=== PATIENT | male | born 1960 | race African-American/Black ===

== ENCOUNTER 2016-04-14 20:06 | Emergency (ER) | payer BC, MEDICAID ==
[2016-04-14] MEDS ORDERED: IBUPROFEN 800 MG TABLET PO ONE (23:41)
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
[2016-04-15 04:13] VITALS: BP 121/58
== END 2016-04-15 01:45 | disposition home or self-care (01) ==
LOC: ER 20:06
DX: S80.01XA Contusion of right knee, initial encounter (principal); M25.561 Pain in right knee; W19.XXXA Unspecified fall, initial encounter; Y92.009 Unspecified place in unspecified non-institutional (private) residence as the place of occurrence of the external cause; M54.9 Dorsalgia, unspecified; F17.200 Nicotine dependence, unspecified, uncomplicated
CPT/HCPCS: 99283; 73564; J3490

== ENCOUNTER 2016-04-16 06:45 | Emergency (ER) | payer MEDICAID ==
[2016-04-16 09:32] LABS: ABSOLUTE EOSINOPHILS # (AUTO) 0.1 10^3/uL (0.0-0.6); ABSOLUTE MONOCYTES (AUTO) 0.3 10^3/uL (0.1-1.4); ABSOLUTE NEUT (AUTO) 2.1 10^3/uL (1.7-8.2); BASOPHILS % (AUTO) 0.8 % (0-2); EOSINOPHILS % (AUTO) 1.6 % (0-6); HEMATOCRIT 40.1 % (37.9-51.0); HEMOGLOBIN 13.3 g/dL (13.5-17.0); HGB HCT DIFFERENCE -0.2; LYMPHOCYTES % (AUTO) 29.5 % (13-45); MEAN CORPUSCULAR HEMOGLOBIN 29.5 pg (27.0-33.4); MEAN CORPUSCULAR HGB CONC 33.3 g/dL (32.0-36.0); MEAN CORPUSCULAR VOLUME 89 fl (80-97); MONOCYTES % (AUTO) 7.3 % (3-13); RED BLOOD COUNT 4.53 10^6/uL (4.35-5.55); RED CELL DISTRIBUTION WIDTH 14.2 % (11.5-14.0); SEGMENTED NEUTROPHILS % (AUTO) 60.8 % (42-78); WHITE BLOOD COUNT 3.5 10^3/uL (4.0-10.5)
[2016-04-16 09:42] LABS: ALANINE AMINOTRANSFERASE 39 U/L (21-72); ALBUMIN 3.9 g/dL (3.5-5.0); ALKALINE PHOSPHATASE 74 U/L (38-126); ANION GAP 11 (5-19); ASPARTATE AMINO TRANSFERASE 31 U/L (17-59); BILIRUBIN,TOTAL 0.9 mg/dL (0.2-1.3); BLOOD UREA NITROGEN 12 mg/dL (7-20); CALCIUM 9.6 mg/dL (8.4-10.2); CARBON DIOXIDE 25 mmol/L (22-30); CHLORIDE 104 mmol/L (98-107); CREATININE RESULT 0.77 mg/dL (0.52-1.25); GLUCOSE 94 mg/dL (75-110); POTASSIUM 4.6 mmol/L (3.6-5.0); SODIUM 139.7 mmol/L (137-145); TOTAL PROTEIN 6.7 g/dL (6.3-8.2)
[2016-04-16 09:45] LABS: ALCOHOL < 10 mg/dL (NONE DETECTED)
--- NOTE | 2016-04-16 10:48 | EKG REPORT ---
SEVERITY:- BORDERLINE ECG - SINUS RHYTHM ATRIAL PREMATURE COMPLEX BORDERLINE ST ELEVATION, ANTEROLATERAL LEADS : Confirmed by: Branden Mejias 16-Apr-2016 10:47:53
--- NOTE | 2016-04-16 12:22 | PSYCHOLOGICAL NOTE ---
Psych Note - Psych Note Psych Note: Pt. reports SI with plan to cut wrists, pt. reports HX of depression and schizophrenia has been off of prozac and abilify since October. Pt. reports having SI thoughts for 2 weeks. Patient states that he has been off is medication since October and that he took Abilify and Prozac. Patient states that he has suicidal ideation but does not have a plan; "not yet." He disclosed that he just moved her from [facility] to be with family. when asked if he lives with family or alone, the patient states that he is homeless. When clinician attempted to discuss resources the patient stated "I don't know why you are focusing on my homelessness, what I really need it rehab." When asked what his drug of choice is he stated "everything" and confirmed the last time he used was last night. The patient states that he has had one inpatient psychiatric stay at [place] in 2001 after his mom . He stated that he hears her "all the time" in his ear whispering to him. Patient is alert and orientated to person, place, time and circumstance. mood is euthymic with congruent affect. Patient endorses suicidal ideation for many years and reports no new acute changes. Patient denies homicidal ideation; no delusions are noted. Patient endorsed auditory hallucinations since 2001 after his mother ; however, they are incongruent with known manifestations of auditory hallucinations. no delusions are noted. Thought process is organized and linear. Thought content appears to be centered around an unknown secondary gain. conversational speech is within normal rate tone and prosody. Eye contact was fair. Intellectual abilities appear to be average range. Attention and concentration are fair. Insight, judgment and impulse control are poor. 292.9 (F19.99) Unspecified Substance related disorder per history provided by patient. 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 Clinician contacted [facility] and set up meeting between patient and mobile crisis to be assessed for detox after discharge. Patient already has an appointment with [facility] on the 04/27/16 for mental health. Patient's presentation at this time is incongruent with what is typically associated with chronic hallucinations, and ability to make eye contact, track and remain on topic, remained calm, did not look around the room , etc. Patient disclosed passive suicidal ideation with no plan; he does not meet criteria for IVC per [place] GS 122 C. Patient is psychiatrically clear for discharge. Dr. Bagley was consulted on the care and management of this patient ; attending physician is in agreement with recommendations and disposition.
[2016-04-16 12:57] LABS: APPEARANCE,URINE CLEAR; BILIRUBIN,URINE NEGATIVE (NEGATIVE); GLUCOSE, URINE NEGATIVE (NEGATIVE); KETONES,URINE NEGATIVE (NEGATIVE); LEUKOCYTE ESTERASE,URINE NEGATIVE (NEGATIVE); NITRITE,URINE NEGATIVE (NEGATIVE); PROTEIN,URINE NEGATIVE (NEGATIVE); URINE SPECIFIC GRAVITY 1.014; UROBILINOGEN,URINE NEGATIVE mg/dL (<2.0)
[2016-04-16 13:12] LABS: URINE BARBITURATES SCREEN NEGATIVE; URINE METHADONE SCREEN NEGATIVE; URINE OPIATES LOW NEGATIVE; URINE PHENCYCLIDINE SCREEN NEGATIVE
--- NOTE | 2016-04-16 13:17 | ER Document Report ---
ED General - General Chief Complaint: Suicidal Ideation Stated Complaint: SUICIDAL IDEATION TRAVEL OUTSIDE OF THE U.S. IN LAST 30 DAYS: No - HPI Patient complains to provider of: suicidal ideation Notes: Patient coming in for evaluation suicidal ideation. Patient states ongoing for the last week or 2 weeks. Kelsy schofield has a history of evaluations. Past and he was traveling down from [place] to [place] on the visit with family. Patient states currently he is residing [place]. Patient denies any changes in his current lifestyle or social situation. Patient states he does drink smoke and due to cocaine and marijuana. Patient states he did cocaine and marijuana night prior to arrival here. Patient was given of breath is no tray was able to tolerate this patient was resting comfortably upon my evaluation. Patient denies a plan. - Related Data Allergies/Adverse Reactions: No Known Allergies Allergy (Unverified 11/08/15 09:03) Past Medical History - Social History Smoking Status: Current Every Day Smoker Chew tobacco use (# tins/day): No Frequency of alcohol use: Heavy Drug Abuse: Cocaine, Marijuana Family History: Reviewed & Not Pertinent Patient has suicidal ideation: Yes Patient has homicidal ideation: No Renal/ Medical History: Denies: Hx Peritoneal Dialysis Psychiatric Medical History: Reports: Hx Depression, Hx Schizophrenia Past Surgical History: Reports: Hx Tonsillectomy - Right 2013 - Immunizations Hx Diphtheria, Pertussis, Tetanus Vaccination: No - Unknown Review of Systems - Review of Systems Constitutional: No symptoms reported EENT: No symptoms reported Cardiovascular: No symptoms reported Respiratory: No symptoms reported Gastrointestinal: No symptoms reported Genitourinary: No symptoms reported Male Genitourinary: No symptoms reported Musculoskeletal: No symptoms reported Skin: No symptoms reported Hematologic/Lymphatic: No symptoms reported Neurological/Psychological: Suicidal ideation -: Yes All other systems reviewed and negative Physical Exam - Vital signs Vitals: Temp Pulse Resp BP Pulse Ox 97.6 F 64 18 146/90 H 99 04/16/16 06:54 04/16/16 06:54 04/16/16 06:54 04/16/16 06:54 04/16/16 06:54 Interpretation: Normal - General General appearance: Appears well, Alert - HEENT Head: Normocephalic, Atraumatic Eyes: Normal Pupils: PERRL - Respiratory Respiratory status: No respiratory distress Chest status: Nontender Breath sounds: Normal Chest palpation: Normal - Cardiovascular Rhythm: Regular Heart sounds: Normal auscultation Murmur: No - Abdominal Inspection: Normal Distension: No distension Bowel sounds: Normal Tenderness: Nontender Organomegaly: No organomegaly - Back Back: Normal, Nontender - Extremities General upper extremity: Normal inspection, Nontender, Normal color, Normal ROM , Normal temperature General lower extremity: Normal inspection, Nontender, Normal color, Normal ROM , Normal temperature, Normal weight bearing. No: Christy's sign - Neurological Neuro grossly intact: Yes Cognition: Normal Orientation: AAOx4 Monica Coma Scale Eye Opening: Spontaneous [place] Coma Scale Verbal: Oriented Monica Coma Scale Motor: Obeys Commands [place] Coma Scale Total: 15 Speech: Normal Motor strength normal: LUE, RUE, LLE, RLE Sensory: Normal - Psychological Associated symptoms: Normal affect, Normal mood - Skin Skin Temperature: Warm Skin Moisture: Dry Skin Color: Normal Course - Re-evaluation Re-evalutation: 04/16/16 14:51 I agree with the assessment and plan of her medical social worker Mahsa this time patient does not need any IVC. Patient will be discharged home - Vital Signs Vital signs: Temp Pulse Resp BP Pulse Ox 98.2 F 64 16 128/75 H 97 04/16/16 13:25 04/16/16 13:25 04/16/16 13:25 04/16/16 13:25 04/16/16 13:25 - Laboratory Result Diagrams: 04/16/16 09:00 04/16/16 09:00 Laboratory results interpreted by me: 04/16/16 04/16/16 09:00 09:00 WBC 3.5 L Hgb 13.3 L RDW 14.2 H Salicylates < 1.0 L Acetaminophen < 10 L Discharge - Discharge Clinical Impression: Auditory hallucinations Condition: Good Disposition: HOME, SELF-CARE Instructions: Hallucinations ([facility]) Additional Instructions: Please follow-up with your primary care physician/[facility]. . Return to the ER symptoms worsen. Referrals: [facility] [Provider Group] - Follow up as needed
[2016-04-16 13:27] VITALS: BP 128/75
== END 2016-04-16 13:26 | disposition home or self-care (01) ==
LOC: ER 06:45
DX: R44.0 Auditory hallucinations (principal); R45.851 Suicidal ideations; F17.210 Nicotine dependence, cigarettes, uncomplicated
CPT/HCPCS: 36415; 80053; 80307; 81001; 85025; 93005; 93010; 99285

== ENCOUNTER 2016-04-16 16:01 | Emergency (ER) | payer MEDICAID ==
--- NOTE | 2016-04-16 16:46 | ER Document Report ---
ED Psych Disorder / Suicide - General Time seen by provider: 16:35 Mode of Arrival: Ambulatory Information source: Patient, [facility] Records <CONNIE LLOYD - Last Filed: 04/16/16 16:53> - General Mode of Arrival: Ambulatory Information source: Patient TRAVEL OUTSIDE OF THE U.S. IN LAST 30 DAYS: No - HPI Patient complains to provider of: Suicidal ideation Onset: Other - see above <ALEK RAYGOZA - Last Filed: 04/16/16 16:57> - General Stated Complaint: SUICIDAL IDEATION Notes: This 56-year-old male patient presents emergency room complaining of feeling suicidal. He came to emergency room this morning about 6:30 by EMS reporting suicidal ideation. His workup showed his known chronic marijuana and cocaine abuse. He was seen by psychiatry, and discharged at 1:30 PM. He was met in the lobby by the workers from our [facility]. They told him they would try to find him inpatient treatment for substance abuse disorder and would contact him when they found the place. He checked back in because apparently he is homeless at this time and wants somewhere to stay. He normally lives in [place] and has family in the area that apparently will not allow him to stay with them any longer. He first showed up here in November 2015 with similar presentation. The psych workers saw him again when he checked back in, and again have reported that he is psychiatrically cleared to be discharged. When I asked why he returned emergency room, he stated that he was having suicidal ideations. When I pointed out that he always has them, he agreed and did not argue the point. He eventually admitted he is here because he has nowhere to stay. The patient does have a cell phone. He does have family who live in this area and he is vague about whether or not they will allow him to stay there. (CONNIE LLOYD) - Related Data Allergies/Adverse Reactions: No Known Allergies Allergy (Unverified 11/08/15 09:03) Past Medical History - General Information source: Patient - Social History Smoking Status: Unknown if Ever Smoked Drug Abuse: Cocaine, Marijuana Family History: Reviewed & Not Pertinent Renal/ Medical History: Denies: Hx Peritoneal Dialysis Psychiatric Medical History: Reports: Hx Depression, Hx Schizophrenia Past Surgical History: Reports: Hx Tonsillectomy - Right 2012 - Immunizations Hx Diphtheria, Pertussis, Tetanus Vaccination: No - Unknown <ALEK RAYGOZA - Last Filed: 04/16/16 16:57> Review of Systems - Review of Systems Constitutional: No symptoms reported EENT: No symptoms reported Cardiovascular: No symptoms reported Respiratory: No symptoms reported Gastrointestinal: No symptoms reported Genitourinary: No symptoms reported Male Genitourinary: No symptoms reported Musculoskeletal: No symptoms reported Skin: No symptoms reported Hematologic/Lymphatic: No symptoms reported Neurological/Psychological: See HPI, Suicidal ideation -: Yes All other systems reviewed and negative <ALEK RAYGOZA - Last Filed: 04/16/16 16:57> Physical Exam - General General appearance: Alert In distress: None - HEENT Head: Normocephalic, Atraumatic Eyes: Normal Extraocular movements intact: Yes Pupils: PERRL - Respiratory Respiratory status: No respiratory distress - Cardiovascular Rhythm: Regular - Abdominal Inspection: Normal - Back Back: Normal - Extremities General upper extremity: Normal inspection, Normal ROM General lower extremity: Normal inspection, Normal ROM - Neurological Neuro grossly intact: Yes - Psychological Associated symptoms: Normal affect, Normal mood - Skin Skin Temperature: Warm Skin Moisture: Dry Skin Color: Normal <ALEK RAYGOZA - Last Filed: 04/16/16 16:57> Discharge <CONNIE LLOYD - Last Filed: 04/16/16 16:53> <ALEK RAYGOZA - Last Filed: 04/16/16 16:57> - Discharge Clinical Impression: Multiple substance abuse, Cocaine abuse, Homeless Schizophrenia Qualifiers: Schizophrenia type: unspecified Qualified Code(s): F20.9 - Schizophrenia, unspecified Additional Instructions: You should follow-up with [facility] for substance abuse treatment and see if they can find you a place in the homeless [facility]. You should consider returning to [place] where you have better support groups. RETURN TO THE EMERGENCY ROOM IF ANY NEW OR WORSENING SYMPTOMS. Scribe Attestation: 04/16/16 16:53 I personally performed the services described in the documentation, reviewed and edited the documentation which was dictated to the scribe in my presence, and it accurately records my words and actions. (CONNIE LLOYD) Scribe Documentation - Scribe Written by Ehibe:: Verónica Mccann, 04/16/2016 0835 acting as scribe for :: Shaquille <RAYGOZA,ALEK - Last Filed: 04/16/16 16:57>
--- NOTE | 2016-04-16 17:05 | PSYCHOLOGICAL NOTE ---
Psych Note - Psych Note Psych Note: Patient was brought back in by [facility] because they could not contract for safety. Patient disclosed that he never left the ED lobby, that he saw that [facility] provider and was told that they would look for a bed for inpatient treatment for substance abuse. Patient stated that he checked back but nothing new has changed. He continued to disclose that he has suffered from suicidal thoughts from many years. Patient still states that he would like treatment for substance abuse. Keshia of [facility] stated that that patient refused to sign a safety contract. She continued to state that when she arrived she stated he had suicidal ideation and needed placement. HE did not disclose that he wanted substance abuse treatment until directly asked. She has called around and there are currently no beds but will be contacting the patient when one becomes available. She stated that she over heard the patient speaking with his girlfriend stating "can you swing by and see if I have an mail... I know some one else is living there now." Patient is alert and orientated to person, place, time and circumstance. mood is euthymic with congruent affect. Patient endorses suicidal ideation for many years and reports no new acute changes. Patient denies homicidal ideation; no delusions are noted. Patient endorsed auditory hallucinations since 2001 after his mother (disclosed this during first evaluation that occurred this morning; please she note) however they are incongruent with known manifestations of auditory hallucinations. no delusions are noted. Thought process is organized and linear. Thought content appears to be centered around an unknown secondary gain. conversational speech is within normal rate tone and prosody. Eye contact was fair. Intellectual abilities appear to be average range. Attention and concentration are fair. Insight, judgment and impulse control are poor. 292.9 (F19.99) Unspecified Substance related disorder per history provided by patient. 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 Clinician contacted [facility] and set up meeting between patient and mobile [facility] to be assessed for substance abuse treatment after discharge. Patient was seen by [facility] in the ED lobby. Patient already has an appointment with [facility] on the 04/27/16 for mental health. Patient's presentation at this time is incongruent with what is typically associated with chronic hallucinations; ability to make eye contact, track and remain on topic, remained calm, did not look around the room, etc. Patient disclosed passive suicidal ideation with no plan unless is told he will not have a bed for the night; he does not meet criteria for IVC per [place] GS 122 C. Patient is psychiatrically clear for discharge. Dr. Bagley was consulted on the care and management of this patient; attending physician is in agreement with recommendations and disposition.
[2016-04-16 17:26] VITALS: BP 131/68
== END 2016-04-16 17:25 | disposition home or self-care (01) ==
LOC: ER 16:01
DX: F14.10 Cocaine abuse, uncomplicated (principal); F20.9 Schizophrenia, unspecified; R45.851 Suicidal ideations
CPT/HCPCS: 99283

== ENCOUNTER 2016-07-21 22:59 | Emergency (ER) | payer MEDICAID, OTHER ==
[2016-07-22 00:53] LABS: ABSOLUTE EOSINOPHILS # (AUTO) 0.1 10^3/uL (0.0-0.6); ABSOLUTE LYMPHOCYTES (AUTO) 1.7 10^3/uL (0.5-4.7); ABSOLUTE MONOCYTES (AUTO) 0.3 10^3/uL (0.1-1.4); ABSOLUTE NEUT (AUTO) 2.4 10^3/uL (1.7-8.2); BASOPHILS % (AUTO) 0.7 % (0-2); EOSINOPHILS % (AUTO) 2.2 % (0-6); HEMATOCRIT 41.1 % (37.9-51.0); HEMOGLOBIN 12.9 g/dL (13.5-17.0); HGB HCT DIFFERENCE -2.4; LYMPHOCYTES % (AUTO) 37.1 % (13-45); MEAN CORPUSCULAR HEMOGLOBIN 29.1 pg (27.0-33.4); MEAN CORPUSCULAR HGB CONC 31.5 g/dL (32.0-36.0); MEAN CORPUSCULAR VOLUME 92 fl (80-97); MONOCYTES % (AUTO) 6.4 % (3-13); RED BLOOD COUNT 4.45 10^6/uL (4.35-5.55); SEGMENTED NEUTROPHILS % (AUTO) 53.6 % (42-78); WHITE BLOOD COUNT 4.5 10^3/uL (4.0-10.5)
[2016-07-22] MEDS ORDERED: ONDANSETRON 4 MG TAB.RAPDIS PO ONE (00:56)
--- NOTE | 2016-07-22 00:56 | ER Document Report ---
ED GI/ - General Chief Complaint: Abdominal Pain Stated Complaint: ABDOMINAL PAIN Time Seen by Provider: 07/22/16 00:46 Notes: Patient is a 56-year-old male who comes emergency department for chief complaint of abdominal pain. He states he has had abdominal pain since yesterday, he also states he had 3 episodes of loose stools. He states that he has both upper and lower cramps, he feels most of it in the middle. He denies fever, vomiting, flank pain, chest pain, hematochezia. He denies any recent travel, suspicious foods, or antibiotics. He states he has had this problem in the past and was told he had "ulcers", it has resolved before. He has not had a colonoscopy. He denies any daily medications. He smokes and also drinks every other day. TRAVEL OUTSIDE OF THE [place] IN LAST 30 DAYS: No - Related Data Allergies/Adverse Reactions: No Known Allergies Allergy (Verified 07/22/16 01:13) Past Medical History - General Information source: Patient - Social History Smoking Status: Current Every Day Smoker Frequency of alcohol use: Heavy - every other day Drug Abuse: None Lives with: Family Family History: Reviewed & Not Pertinent Patient has suicidal ideation: No Patient has homicidal ideation: No Renal/ Medical History: Denies: Hx Peritoneal Dialysis Psychiatric Medical History: Reports: Hx Depression, Hx Schizophrenia Past Surgical History: Reports: Hx Tonsillectomy - Right 2013 - Immunizations Hx Diphtheria, Pertussis, Tetanus Vaccination: No - Unknown Review of Systems - Review of Systems Constitutional: No symptoms reported EENT: No symptoms reported Cardiovascular: No symptoms reported Respiratory: No symptoms reported Gastrointestinal: See HPI Genitourinary: No symptoms reported Male Genitourinary: No symptoms reported Musculoskeletal: No symptoms reported Skin: No symptoms reported Hematologic/Lymphatic: No symptoms reported Neurological/Psychological: No symptoms reported Physical Exam - Vital signs Vitals: Temp Pulse Resp BP Pulse Ox 98.5 F 76 20 116/60 98 07/21/16 23:03 07/21/16 23:03 07/21/16 23:03 07/21/16 23:03 07/21/16 23:03 Interpretation: Normal - General General appearance: Appears well, Alert In distress: None - patient calm, no distress - HEENT Head: Normocephalic, Atraumatic Eyes: Normal Pupils: PERRL - Respiratory Respiratory status: No respiratory distress Chest status: Nontender Breath sounds: Normal Chest palpation: Normal - Cardiovascular Rhythm: Regular. No: Tachycardia Heart sounds: Normal auscultation, S1 appreciated, S2 appreciated Murmur: No - Abdominal Inspection: Normal Distension: No distension Bowel sounds: Normal Tenderness: Tender - mild generalized tenderness, slightly worse in the mid to upper abdomen; generally benign; no guarding Organomegaly: No organomegaly - Back Back: Normal, Nontender - Extremities General upper extremity: Normal inspection, Nontender, Normal color, Normal ROM , Normal temperature General lower extremity: Normal inspection, Nontender, Normal color, Normal ROM , Normal temperature, Normal weight bearing. No: Christy's sign - Neurological Neuro grossly intact: Yes Cognition: Normal Orientation: AAOx4 Monica Coma Scale Eye Opening: Spontaneous Selma Coma Scale Verbal: Oriented Sel[place] Coma Scale Motor: Obeys Commands Selma Coma Scale Total: 15 Speech: Normal Motor strength normal: LUE, RUE, LLE, RLE Sensory: Normal - Psychological Associated symptoms: Normal affect, Normal mood. No: Aggressive, Agitated, Angry, Anxious, Confused - Skin Skin Temperature: Warm Skin Moisture: Dry Skin Color: Normal Course - Re-evaluation Re-evalutation: Patient has generalized abdominal tenderness with no guarding. No leukocytosis, fever, tachycardia, or remarkable vitals. He has a psychiatric history but he makes good eye contact, is very directed and clear, has no confusion or responses to internal stimuli. Chemistry unremarkable. Urine has elevated specific gravity. No complaints after zofran, resting quietly. Gave carafate and pepcid, afterwards patient tolerated PO without any difficulty. Low suspicion of acute abdomen. Patient unable to give stool sample so this was canceled (has had 3 loose episodes today). Placing on omeprazole, discussed results, discussed primary care follow-up, discussed treatment and return precautions, patient states understanding and agreement. - Vital Signs Vital signs: Temp Pulse Resp BP Pulse Ox 97.6 F 53 L 14 118/68 99 07/22/16 02:55 07/22/16 02:55 07/22/16 02:55 07/22/16 02:55 07/22/16 02:55 - Laboratory Result Diagrams: 07/22/16 00:35 07/22/16 00:35 Laboratory results interpreted by me: 06/07/22/16 07/22/16 00:35 00:35 00:35 Hgb 12.9 L MCHC 31.5 L RDW 15.0 H Chloride 109 H Alkaline Phosphatase 143 H Total Protein 5.8 L Albumin 3.1 L Urine Urobilinogen 4.0 H Ur Leukocyte Esterase TRACE H Urine Ascorbic Acid 40 H Discharge - Discharge Clinical Impression: Abdominal pain Qualifiers: Abdominal location: generalized Qualified Code(s): R10.84 - Generalized abdominal pain Condition: Stable Disposition: HOME, SELF-CARE Additional Instructions: Take the omeprazole daily, stop smoking, reduce alcohol. Take tums, pepcid, or similar medication if needed as well. Follow up with primary care, I recommend a colonoscopy as well. Return to the ED for worsening symptoms - increased pain, vomiting, black stools , fever, etc. Prescriptions: Omeprazole 40 mg PO DAILY #30 capsule. Referrals: LOUANN REINOSO, OUTPATIENT PHYSICAL THERAPIST-C [Primary Care Provider] - Follow up as needed
[2016-07-22 01:04] LABS: ALANINE AMINOTRANSFERASE 24 U/L (21-72); ALBUMIN 3.1 g/dL (3.5-5.0); ALKALINE PHOSPHATASE 143 U/L (38-126); ANION GAP 6 (5-19); APPEARANCE,URINE SLIGHTLY-CLOUDY; ASPARTATE AMINO TRANSFERASE 20 U/L (17-59); BILIRUBIN,DIRECT 0.2 mg/dL (0.0-0.4); BILIRUBIN,TOTAL 0.4 mg/dL (0.2-1.3); BILIRUBIN,URINE NEGATIVE (NEGATIVE); BLOOD UREA NITROGEN 12 mg/dL (7-20); CALCIUM 8.4 mg/dL (8.4-10.2); CARBON DIOXIDE 25 mmol/L (22-30); CHLORIDE 109 mmol/L (98-107); CREATININE RESULT 0.89 mg/dL (0.52-1.25); GLUCOSE 107 mg/dL (75-110); GLUCOSE, URINE NEGATIVE (NEGATIVE); KETONES,URINE NEGATIVE (NEGATIVE); LEUKOCYTE ESTERASE,URINE TRACE (NEGATIVE); LIPASE 161.8 U/L (23-300); NITRITE,URINE NEGATIVE (NEGATIVE); POTASSIUM 4.2 mmol/L (3.6-5.0); PROTEIN,URINE NEGATIVE (NEGATIVE); TOTAL PROTEIN 5.8 g/dL (6.3-8.2); URINE SPECIFIC GRAVITY 1.032
[2016-07-22] MEDS ORDERED: SUCRALFATE 1 GM TABLET PO ONE (01:56)
[2016-07-22] MEDS ORDERED: FAMOTIDINE 20 MG TABLET PO ONE (01:56)
[2016-07-22 03:04] VITALS: BP 118/68
== END 2016-07-22 03:00 | disposition home or self-care (01) ==
LOC: ER 22:59
DX: R10.84 Generalized abdominal pain (principal); R19.4 Change in bowel habit; F17.200 Nicotine dependence, unspecified, uncomplicated
CPT/HCPCS: 99284; 36415; 83690; 85025; 80053; 81001; J3490 ×2; S0119

== ENCOUNTER 2017-06-23 00:04 | Emergency (ER) | payer MEDICAID ==
[2017-06-23] MEDS ORDERED: KETOROLAC TROMETHAMINE INJ/PF 30 MG/1 ML SDV IM ONE (01:21)
--- NOTE | 2017-06-23 01:26 | ER Document Report ---
HPI - HPI Pain Level: 5 Notes: Patient is a 57-year-old male who presents to the ED complaining of chronic right knee pain times years. Patient states that he continues to have pain in that knee. He has not had any surgeries to that knee before. The pain does not radiate. Patient states that he has arthritis in both of his knees. He does not have any history of gout or diabetes. Patient states that he is still able to ambulate without any difficulties otherwise. No other concerns or complaints at this time. No other recent injury/trauma. Denies any headache, fever, URI, sore throat, chest pain, palpitations, syncope, cough, shortness of breath, wheeze, dyspnea, abdominal pain, nausea/vomiting/diarrhea, urinary retention, dysuria, hematuria, loss of control of bowel or bladder, numbness/ tingling, saddle anesthesia, muscle paralysis/weakness, or rash. - ROS Systems Reviewed and Negative: Yes All other systems reviewed and negative Past Medical History - Social History Smoking Status: Unknown if Ever Smoked Family History: Reviewed & Not Pertinent Renal/ Medical History: Denies: Hx Peritoneal Dialysis GI Medical History: Reports: Hx Ulcer Psychiatric Medical History: Reports: Hx Depression, Hx Schizophrenia Past Surgical History: Reports: Hx Tonsillectomy - Right 2013 - Immunizations Hx Diphtheria, Pertussis, Tetanus Vaccination: No - Unknown Vertical Provider Document - CONSTITUTIONAL Agree With Documented VS: Yes Notes: PHYSICAL EXAMINATION: GENERAL: Well-appearing, well-nourished and in no acute distress. LUNGS: Breath sounds clear to auscultation bilaterally and equal. No wheezes rales or rhonchi. HEART: Regular rate and rhythm without murmurs, rubs, gallops. Musculoskeletal: Rt knee: + arthritic changes noted to visual inspection and to palpation. FROM to passive/active. Strength 5+/5. N/V intact distal. No bony tenderness. Knee feels stable, but difficult to assess with overall size of patient's legs. + crepitus. No erythema, warmth, swelling, effusion. Extremities: No cyanosis, clubbing, or edema b/l. Peripheral pulses 2+. Capillary refill less than 3 seconds. NEUROLOGICAL: Normal speech, normal gait. Normal sensory, motor exams PSYCH: Normal mood, foul odor in the room SKIN: Warm, Dry, normal turgor, no rashes or lesions noted. - INFECTION CONTROL TRAVEL OUTSIDE OF THE [place] IN LAST 30 DAYS: No Course - Re-evaluation Re-evalutation: 06/23/17 01:24 Patient is an afebrile, well-hydrated, 57-year-old male who presents to the ED with chronic right knee pain. Vitals are acceptable. PE is otherwise unremarkable for any neurovascular compromise, obvious tendon/ligament rupture, obvious fracture/dislocation, septic joint. No labs or imaging warranted at this time based on H&P. Patient has not had any acute injury or trauma. There are no signs of infection. He has no significant tachycardia, tachypnea, or hypoxia. Toradol given IM today. I will send him home with a prescription for naproxen. Conservative measures otherwise for symptoms. Recheck with your PCM in 3-5 days. Consider consult with orthopedic/physical therapy. Return to the ED with any worsening/concerning symptoms otherwise as reviewed discharge. Patient is in agreement. - Vital Signs Vital signs: Temp Pulse Resp BP Pulse Ox 99.3 F 61 16 134/72 H 98 06/23/17 00:13 06/23/17 00:13 06/23/17 00:13 06/23/17 00:13 06/23/17 00:13 Discharge - Discharge Clinical Impression: Chronic pain of right knee Condition: Stable Disposition: HOME, SELF-CARE Instructions: Ice & Elevation ([facility]) Additional Instructions: Rest, Ice, Compression, Elevation Tylenol/ibuprofen as needed Light stretches daily Strength exercises as able Moist heat and massage may help F/u with your PCP in 3-5 days for a recheck Consider consult(s) with Orthopedics/physical therapy for ongoing/worsening symptoms Return to the ED with any worsening symptoms and/or development of fever, headache, chest pain, palpitations, syncope, shortness of breath, trouble breathing, abdominal pain, n/v/d, muscle weakness/paralysis, numbness/tingling, swelling, redness, or other worsening symptoms that are concerning to you. Prescriptions: Naproxen 500 mg PO BID PRN #30 tablet PRN Reason: Forms: Elevated Blood Pressure Referrals: [facility] [Provider Group] - Follow up as needed
[2017-06-23 02:09] VITALS: BP 127/70
== END 2017-06-23 02:07 | disposition home or self-care (01) ==
LOC: ER 00:04
DX: G89.29 Other chronic pain (principal); M25.561 Pain in right knee
CPT/HCPCS: 99283; 96372; J1885

== ENCOUNTER 2017-06-27 02:15 | Emergency (ER) | payer MEDICAID ==
--- NOTE | 2017-06-27 03:16 | ER Document Report ---
ED General - General Chief Complaint: Knee Pain Stated Complaint: KNEE PAIN Time Seen by Provider: 06/27/17 03:16 Mode of Arrival: Ambulatory Information source: Patient Notes: 59-year-old gentleman with past medical history of bilateral chronic osteoarthritis of the knees presented today for evaluation of worsening knee pain. According to patient he was seen here recently and was given naproxen with no significant improvement of his pain. Patient is currently being evaluated by cash reconciliation specialist for possible knee replacement. No fevers, no chills, no nausea or vomiting. TRAVEL OUTSIDE OF THE [place] IN LAST 30 DAYS: No - Related Data Allergies/Adverse Reactions: No Known Allergies Allergy (Verified 07/22/16 01:13) Past Medical History - General Information source: Patient - Social History Smoking Status: Current Some Day Smoker Family History: Reviewed & Not Pertinent Patient has suicidal ideation: No Patient has homicidal ideation: No Renal/ Medical History: Denies: Hx Peritoneal Dialysis GI Medical History: Reports: Hx Ulcer Psychiatric Medical History: Reports: Hx Depression, Hx Schizophrenia Past Surgical History: Reports: Hx Tonsillectomy - Right 2012 - Immunizations Hx Diphtheria, Pertussis, Tetanus Vaccination: No - Unknown Review of Systems - Review of Systems Notes: REVIEW OF SYSTEMS: CONSTITUTIONAL: -fevers, -chills EENT: -eye pain, -difficulty swallowing, -nasal congestion CARDIOVASCULAR: -chest pain, -syncope. RESPIRATORY: -cough, -SOB GASTROINTESTINAL: -abdominal pain, -nausea, -vomiting, -diarrhea GENITOURINARY: -dysuria, -hematuria MUSCULOSKELETAL: -back pain, + knee pain SKIN: -rash or skin lesions. HEMATOLOGIC: -easy bruising or bleeding. ALL OTHER SYSTEMS REVIEWED AND NEGATIVE. Physical Exam - Vital signs Vitals: Temp Pulse Resp BP Pulse Ox 98.2 F 63 16 121/71 98 06/27/17 02:25 06/27/17 02:25 06/27/17 02:25 06/27/17 02:25 06/27/17 02:25 - Notes Notes: Reviewed vital signs and nursing note as charted by RN. CONSTITUTIONAL: Alert and oriented and responds appropriately to questions HEAD: Normocephalic; atraumatic EYES: PERRL ENT: normal nose CARD: Regular rate and rhythm; no murmurs, no clicks, no rubs, no gallops; symmetric distal pulses RESP: Normal chest excursion without splinting or tachypnea; breath sounds clear and equal bilaterally ABD/GI: Normal bowel sounds; non-distended; soft, nontender BACK: The back appears normal and is non-tender to palpation EXT: Patient has bilateral knee findings of osteoarthritis, no knee effusions, no septic knee, DP and PT palpable bilaterally, sensation is present in all dermatomes of the lower extremities bilaterally SKIN: Normal color for age and race; warm; dry; good turgor; capillary refill < 2 seconds; no acute lesions noted NEURO: .Cranial nerves 3-12 intact. Motor strength 5/5 bilaterally. Sensation intact to touch bilaterally. No pronator drift. Finger to nose intact bilaterally PSYCH: The patient's mood and manner are appropriate. Grooming and personal hygiene are appropriate. Course - Re-evaluation Re-evalutation: 06/27/17 03:25 Patient with bilateral chronic knee pain without any evidence of infection or concerns for septic joint NSAIDs are not working anymore, will offer patient a short course of Chester Follow-up with primary care physician as well as orthopedist - Vital Signs Vital signs: Temp Pulse Resp BP Pulse Ox 98.2 F 63 16 121/71 98 06/27/17 02:25 06/27/17 02:25 06/27/17 02:25 06/27/17 02:25 06/27/17 02:25 Discharge - Discharge Clinical Impression: Knee osteoarthritis Qualifiers: Osteoarthritis type: primary Laterality: bilateral Qualified Code(s): M17.0 - Bilateral primary osteoarthritis of knee Condition: Stable Additional Instructions: You have been diagnosed with osteoporosis of the knee, please take your pain medication as prescribed, please follow-up with orthopedic surgeon for further evaluation and management of your knee pain Please come back if there worsening fevers, chills, nausea or vomiting Prescriptions: Hydrocodone/Acetaminophen [Chester 5-325 mg Tablet] 1 tab PO Q6 5 Days #12 tablet Referrals: SINGH RICH DO [ACTIVE STAFF] - Follow up as needed
[2017-06-27] MEDS ORDERED: HYDROCODONE/ACETAMINOPHEN 5-325 MG TABLET PO ONE (03:22)
[2017-06-27 03:44] VITALS: BP 122/70
== END 2017-06-27 03:43 | disposition home or self-care (01) ==
LOC: ER 02:15
DX: M17.0 Bilateral primary osteoarthritis of knee (principal); M25.562 Pain in left knee; M25.561 Pain in right knee; F17.200 Nicotine dependence, unspecified, uncomplicated
CPT/HCPCS: 99283

== ENCOUNTER 2017-07-05 05:19 | Emergency (ER) | payer MEDICAID ==
[2017-07-05 05:23] VITALS: BP 113/62
== END 2017-07-05 07:20 | disposition left against medical advice (07) ==
LOC: ER 05:19
DX: Z53.21 Procedure and treatment not carried out due to patient leaving prior to being seen by health care provider (principal)

== ENCOUNTER 2017-07-11 23:07 | Emergency (ER) | payer MEDICAID ==
[2017-07-12] MEDS ORDERED: HYDROCODONE/ACETAMINOPHEN 5-325 MG (6 TAB/ER DISP) PO PRN (00:10)
--- NOTE | 2017-07-12 00:19 | ER Document Report ---
ED Extremity Problem, Lower - General Chief Complaint: Knee Pain Stated Complaint: RT KNEE PAIN Time Seen by Provider: 07/11/17 23:57 Mode of Arrival: Ambulatory Information source: Patient Notes: 57-year-old male patient presents with complaint of right knee pain. Patient reports that this pain has been ongoing for several months. Patient has been seen here recently for the same complaint. Most recent visit was on June 27. Patient reports that he has a follow-up appointment with orthopedic surgery on at [facility]. Patient denies any new symptoms patient just reports that the pain medication he was given did help his pain however patient reports that the pain medication has run out. TRAVEL OUTSIDE OF THE [place] IN LAST 30 DAYS: No - Related Data Allergies/Adverse Reactions: No Known Allergies Allergy (Verified 07/22/16 01:13) Past Medical History - General Information source: Patient - Social History Smoking Status: Current Some Day Smoker Frequency of alcohol use: Social Lives with: Alone Family History: Reviewed & Not Pertinent Patient has suicidal ideation: No Patient has homicidal ideation: No Renal/ Medical History: Denies: Hx Peritoneal Dialysis GI Medical History: Reports: Hx Ulcer Psychiatric Medical History: Reports: Hx Depression, Hx Schizophrenia Past Surgical History: Reports: Hx Tonsillectomy - Right 2012 - Immunizations Hx Diphtheria, Pertussis, Tetanus Vaccination: No - Unknown Review of Systems - Review of Systems Constitutional: No symptoms reported EENT: No symptoms reported Cardiovascular: No symptoms reported Respiratory: No symptoms reported Gastrointestinal: No symptoms reported Genitourinary: No symptoms reported Male Genitourinary: No symptoms reported Musculoskeletal: See HPI Skin: No symptoms reported Hematologic/Lymphatic: No symptoms reported Neurological/Psychological: No symptoms reported Physical Exam - Vital signs Vitals: Temp Pulse Resp BP Pulse Ox 98.7 F 79 16 107/63 97 07/11/17 23:12 07/11/17 23:12 07/11/17 23:12 07/11/17 23:12 07/11/17 23:12 - Notes Notes: PHYSICAL EXAMINATION: GENERAL: Well-appearing, well-nourished and in no acute distress. HEAD: Atraumatic, normocephalic. EYES: Pupils equal round and reactive to light, extraocular movements intact, sclera anicteric, conjunctiva are normal. ENT: Nares patent, oropharynx clear without exudates. Moist mucous membranes. NECK: Normal range of motion, supple without lymphadenopathy LUNGS: Breath sounds clear to auscultation bilaterally and equal. No wheezes rales or rhonchi. HEART: Regular rate and rhythm without murmurs ABDOMEN: Soft, nontender, nondistended abdomen. No guarding, no rebound. No masses appreciated. Musculoskeletal: Patient has bilateral knee findings consistent with osteoarthritis, no knee effusions, no septic knee, DP and PT palpable bilaterally, sensation is present in all dermatomes of the lower extremities bilaterally. NEUROLOGICAL: Cranial nerves grossly intact. Normal speech, normal gait. Normal sensory, motor exams PSYCH: Normal mood, normal affect. SKIN: Warm, Dry, normal turgor, no rashes or lesions noted. Course - Re-evaluation Re-evalutation: Patient presents with bilateral chronic knee pain which is worse on the left side. Patient has been seen here recently however patient reports that he is out of his pain medications. Patient states that he already has a follow-up scheduled for with an orthopedic surgeon. Will give RX for norco for the next 2 days. Patient understands to follow up with his orthopedic surgeon for any further chronic pain needs. - Vital Signs Vital signs: Temp Pulse Resp BP Pulse Ox 98.6 F 68 20 130/64 H 96 07/12/17 00:59 07/12/17 00:59 07/12/17 00:59 07/12/17 00:59 07/12/17 00:59 Discharge - Discharge Clinical Impression: Knee pain Qualifiers: Chronicity: chronic Laterality: right Qualified Code(s): M25.561 - Pain in right knee Condition: Stable Disposition: HOME, SELF-CARE Additional Instructions: Take the medications as prescribed for your knee pain. Please keep the follow- up appointment that you have set up with the orthopedic surgeon for this . Prescriptions: Hydrocodone/Acetaminophen [Vicodin 5-300 mg Tablet] 1 each PO Q6 PRN 2 Days #10 tablet PRN Reason: For Pain Referrals: LOUANN REINOSO FNP-C [Primary Care Provider] - Follow up as needed
[2017-07-12 01:16] VITALS: BP 130/64
== END 2017-07-12 01:02 | disposition home or self-care (01) ==
LOC: ER 23:07
DX: G89.29 Other chronic pain (principal); M25.562 Pain in left knee; M25.561 Pain in right knee; F17.200 Nicotine dependence, unspecified, uncomplicated
CPT/HCPCS: 99283

== ENCOUNTER 2017-09-13 00:08 | Emergency (ER) | payer MEDICAID ==
[2017-09-13 02:27] LABS: ABSOLUTE EOSINOPHILS # (AUTO) 0.1 10^3/uL (0.0-0.6); ABSOLUTE LYMPHOCYTES (AUTO) 1.6 10^3/uL (0.5-4.7); ABSOLUTE MONOCYTES (AUTO) 0.3 10^3/uL (0.1-1.4); ABSOLUTE NEUT (AUTO) 2.9 10^3/uL (1.7-8.2); BASOPHILS % (AUTO) 0.5 % (0-2); EOSINOPHILS % (AUTO) 2.1 % (0-6); HEMATOCRIT 36.7 % (37.9-51.0); HEMOGLOBIN 12.3 g/dL (13.5-17.0); LYMPHOCYTES % (AUTO) 31.9 % (13-45); MEAN CORPUSCULAR HEMOGLOBIN 29.5 pg (27.0-33.4); MEAN CORPUSCULAR HGB CONC 33.5 g/dL (32.0-36.0); MEAN CORPUSCULAR VOLUME 88 fl (80-97); MONOCYTES % (AUTO) 6.6 % (3-13); PLATELET COUNT 170 10^3/uL (150-450); RED BLOOD COUNT 4.17 10^6/uL (4.35-5.55); RED CELL DISTRIBUTION WIDTH 12.9 % (11.5-14.0); SEGMENTED NEUTROPHILS % (AUTO) 58.9 % (42-78); TOTAL CELLS COUNTED % (AUTO) 100 %; WHITE BLOOD COUNT 4.9 10^3/uL (4.0-10.5)
--- NOTE | 2017-09-13 02:34 | ER Document Report ---
ED General - General TRAVEL OUTSIDE OF THE [place] IN LAST 30 DAYS: No <RUBINA HOUGH - Last Filed: 09/13/17 05:21> <MARICRUZ BISHOP - Last Filed: 09/13/17 10:05> <ASIA GALVEZ - Last Filed: 09/13/17 10:11> - General Chief Complaint: Suicidal Ideation Stated Complaint: SUICIDE IDEATION Time Seen by Provider: 09/13/17 01:52 Notes: Patient is a 57-year-old male presents with complaint of thoughts of suicide. He says he has been suicidal and depressed because of a history of alcoholism and cocaine use. He says he drinks alcohol every day but does not ever go through withdrawal. Says he uses cocaine and marijuana daily basis as well. Denies any fevers. No vomiting. He denies any concerning pains at this time. Denies any acute illness. He says only medications he takes are for psychiatric illness. He does have bilateral lower extremity edema on exam which patient says he has had for many years. He is unsure what the cause of his lower extremity edema is. He does not have any difficulty breathing. He says he is suicidal but does not have a plan. Last time he was in rehab was 15 years ago. (RUBINA HOUGH) - Related Data Allergies/Adverse Reactions: No Known Allergies Allergy (Verified 07/22/16 01:13) Past Medical History - Social History Smoking Status: Unknown if Ever Smoked Frequency of alcohol use: Heavy Drug Abuse: Cocaine, Marijuana Family History: Reviewed & Not Pertinent Renal/ Medical History: Denies: Hx Peritoneal Dialysis GI Medical History: Reports: Hx Ulcer Psychiatric Medical History: Reports: Hx Depression, Hx Schizophrenia Past Surgical History: Reports: Hx Tonsillectomy - Right 2012 - Immunizations Hx Diphtheria, Pertussis, Tetanus Vaccination: No - Unknown <RUBINA HOUGH - Last Filed: 09/13/17 05:21> Review of Systems <RUBINA HOUGH - Last Filed: 09/13/17 05:21> <MARICRUZ BISHOP - Last Filed: 09/13/17 10:05> <ASIA GALVEZ - Last Filed: 09/13/17 10:11> - Review of Systems Notes: My Normal Review Basic REVIEW OF SYSTEMS: CONSTITUTIONAL : Denies fever, chills, or sweats. Denies recent illness. EENT: Denies eye, ear, throat, or mouth pain or symptoms. Denies nasal or sinus congestion. CARDIOVASCULAR: Denies chest pain. RESPIRATORY: Denies cough, cold, or chest congestion. Denies shortness of breath, difficulty breathing, or wheezing. GASTROINTESTINAL: Denies abdominal pain. Denies nausea, vomiting, or diarrhea. Denies constipation. Last BM: MUSCULOSKELETAL: Denies neck or back pain or joint pain or swelling. SKIN: Denies rash or skin lesions. NEUROLOGICAL: Denies altered mental status or loss of consciousness. Denies headache. Denies weakness or paralysis or loss of use of either side. Denies problems with gait or speech. Denies sensory or motor loss. PSYCHIATRIC: Suicidal ideations ALL OTHER SYSTEMS REVIEWED AND NEGATIVE. (RUBINA HOUGH) Physical Exam <RUBINA HOUGH - Last Filed: 09/13/17 05:21> <MARICRUZ BISHOP - Last Filed: 09/13/17 10:05> <ASIA GALVEZ - Last Filed: 09/13/17 10:11> - Vital signs Vitals: Temp Pulse Resp BP Pulse Ox 99.2 F 78 16 109/62 90 L 09/13/17 00:14 09/13/17 00:14 09/13/17 00:14 09/13/17 00:14 09/13/17 00:14 - Notes Notes: General Appearance: Well nourished, alert, cooperative, no acute distress, no obvious discomfort. Well appearing. Vitals: reviewed, See vital signs table. Head: no swelling or tenderness to the head Eyes: PERRL, EOMI, Conjuctiva clear Mouth: No decreasd moisture Throat: No tonsillar inflammation, No airway obstruction, No lymphadenopathy Neck: Supple, no neck tenderness Lungs: No wheezing, No rales, No rhonci, No accessory muscle use, good air exchange bilaterally. Heart: Normal rate, Regular rythm, No murmur, no rub Abdomen: Normal BS, soft, No rigidity, No abdominal tenderness, No guarding, no rebound, no abdominal masses, no organomegaly Extremities: strength 5/5 in all extremities, good pulses in all extremities, no swelling or tenderness in the extremities, 3+ bilateral lower extremity edema. Skin: warm, dry, appropriate color, no rash Neuro: speech clear, oriented x 3, normal affect, responds appropriately to questions. (RUBINA HOUGH) Course - Laboratory Result Diagrams: 09/13/17 02:05 09/13/17 02:05 <RUBINA HOUGH - Last Filed: 09/13/17 05:21> - Laboratory Result Diagrams: 09/13/17 02:05 09/13/17 02:05 <MARICRUZ BISHOP - Last Filed: 09/13/17 10:05> - Laboratory Result Diagrams: 09/13/17 02:05 09/13/17 02:05 <ASIA GALVEZ - Last Filed: 09/13/17 10:11> - Re-evaluation Re-evalutation: 09/13/17 05:21 Patient is medically stable for psychiatric evaluation and placement. Patient says he drinks alcohol every day but has never had any withdrawal symptoms. Currently his alcohol level is 0 and is having no withdrawal symptoms and looks well. I do not expect him to have any alcohol withdrawal at this time. Patient is voluntary wants to see psychiatry. Dictation of this chart was performed using voice recognition software; therefore, there may be some unintended grammatical errors. (RUBINA HOUGH) - Vital Signs Vital signs: Temp Pulse Resp BP Pulse Ox 99.2 F 77 17 108/71 97 09/13/17 00:14 09/13/17 06:12 09/13/17 06:12 09/13/17 06:12 09/13/17 06:12 - Laboratory Laboratory results interpreted by me: 09/13/17 09/13/17 09/13/17 02:05 02:05 07:55 RBC 4.17 L Hgb 12.3 L Hct 36.7 L Sodium 147.0 H Chloride 110 H Urine Urobilinogen 4.0 H Ur Leukocyte Esterase SMALL H Salicylates < 1.0 L Acetaminophen < 10 L Discharge <RUBINA HOUGH - Last Filed: 09/13/17 05:21> <MARICRUZ BISHOP - Last Filed: 09/13/17 10:05> <ASIA GALVEZ - Last Filed: 09/13/17 10:11> - Discharge Clinical Impression: Suicidal ideations, Cocaine abuse, Alcohol abuse Condition: Stable Disposition: HOME, SELF-CARE Additional Instructions: You have been evaluated by both medical and behavioral health team and have been deemed appropriate for discharge. You are recommended to contacted integrated family services upon discharge to set up assistance in continued substance abuse treatment i.e. detox. CHRONIC ALCOHOLISM and ALCOHOL ABUSE: Your evaluation reveals evidence of chronic alcoholism, an addiction to alcohol. The tendency to alcoholism may be inherited. Chronic use of alcohol weakens muscles, causes fatty deposits in the liver , damages the stomach, makes you more prone to infections, and can cause defects in unborn children. In the long run, brain atrophy and cirrhosis of the liver result. You are also at greater risk for certain types of cancer, such as cancer of the mouth, throat, stomach, and liver. Counselling services are available to help you. In-hospital treatment programs often help. Support groups such as Alcoholics Anonymous can be very useful in beating this addiction. Your physician can make a referral for you. As alcoholics often are prone to other addictions, you should discuss your use of any other medications with the doctor. COCAINE ABUSE: Cocaine causes many dangerous medical problems. Problems can occur even with "usual" amounts. Cocaine affects judgement, creating a sense of invulnerability. Cocaine users often make bad decisions that seem "great" at the time. Most cocaine users eventually will be hurt by bad job performance, damaged personal relations, crime, and unsafe sexual practices. Toxic effects of cocaine can include seizures, hallucinations, delusions, high blood pressure, heart damage, or sudden . There's always the risk of a "bad batch." But heart attacks, brain hemorrhages, or cardiac arrest can occur unpredictably even with "normal" use. Injection of cocaine is risky for abscesses, endocarditis (heart infection) , pneumonia, and AIDS. Withdrawal from cocaine often causes anxiety and drug cravings. Some users become paranoid and psychotic. Many treatment programs are available, but you must make the decision to quit. Medication can be prescribed to control the symptoms of cocaine toxicity (beta blockers or benzodiazepines). Withdrawal symptoms may require tranquilizers. Referrals: LOUANN REINOSO FNP-C [Primary Care Provider] - Follow up as needed [facility] [Outside] - 09/13/17 [facility] [Outside] - Follow up in 3-5 days
[2017-09-13 02:36] LABS: ALANINE AMINOTRANSFERASE 29 U/L (21-72); ALBUMIN 3.6 g/dL (3.5-5.0); ALKALINE PHOSPHATASE 113 U/L (38-126); ANION GAP 9 (5-19); ASPARTATE AMINO TRANSFERASE 27 U/L (17-59); BILIRUBIN,DIRECT 0.2 mg/dL (0.0-0.4); BILIRUBIN,TOTAL 0.7 mg/dL (0.2-1.3); BLOOD UREA NITROGEN 17 mg/dL (7-20); CARBON DIOXIDE 28 mmol/L (22-30); CHLORIDE 110 mmol/L (98-107); GLUCOSE 86 mg/dL (75-110); TOTAL PROTEIN 6.5 g/dL (6.3-8.2)
[2017-09-13 02:37] LABS: ACETAMINOPHEN < 10 ug/mL (10-30); ALCOHOL < 10 mg/dL (NONE DETECTED); SALICYLATE < 1.0 mg/dL (2.0-20.0)
[2017-09-13 06:13] VITALS: BP 108/71
[2017-09-13 08:29] LABS: APPEARANCE,URINE SLIGHTLY-CLOUDY; BILIRUBIN,URINE NEGATIVE (NEGATIVE); COLOR,URINE YELLOW; GLUCOSE, URINE NEGATIVE (NEGATIVE); KETONES,URINE NEGATIVE (NEGATIVE); LEUKOCYTE ESTERASE,URINE SMALL (NEGATIVE); NITRITE,URINE NEGATIVE (NEGATIVE); PROTEIN,URINE NEGATIVE (NEGATIVE)
[2017-09-13 09:10] LABS: URINE AMPHETAMINES SCREEN NEGATIVE; URINE BARBITURATES SCREEN NEGATIVE; URINE BENZODIAZEPINES SCREEN NEGATIVE; URINE COCAINE SCREEN UNCONFIRMED POSITIVE; URINE MARIJUANA (THC) SCREEN NEGATIVE; URINE METHADONE SCREEN NEGATIVE; URINE PHENCYCLIDINE SCREEN NEGATIVE
--- NOTE | 2017-09-13 10:05 | PSYCHOLOGICAL NOTE ---
Psych Note - Psych Note Psych Note: Reason for Consult: suicidal ideation, substance abuse Patient is a 57-year-old male presents with complaint of thoughts of suicide. He says he has been suicidal and depressed because of a history of alcoholism and cocaine use. He says he drinks alcohol every day but does not ever go through withdrawal. Says he uses cocaine and marijuana daily basis as well. Patient disclosed that he brought himself on his bike to [facility] hope of getting assistance with rehab. "I need to go in... if I do not go and I am going to ." Patient denies suicidal ideation reporting the last time he had thoughts of harming himself was in 2001; "I'm not trying to go there again." He discloses he will use any drugs he can get a hold of and he last used yesterday (cocaine). Behavioral Health Team contacted [facility], there are currently no beds available. Patient is alert and orientated to person, place time and circumstance. Mood is euthymic with congruent affect. Patient denies suicidal and homicidal ideation. Delusions are absent and behaviour are congruent with an intact reality based presentation ie organized and linear thought processes. eye contact was well maintained. conversational speech is within normal rate tone and porosody. intellectually abilities appear to be average range. Attention and concentration were good. Insight, judgment, impulse control are fair. 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 Patient does not meet IVC critria per [place] GS 122C. Patient denies suicidal ideation. Patient is recommended to work with [facility] upon discharge for continued assistance in seeking detox and substance abuse treatment. Dr. Bagley was consulted and the care management this patient; attending physician is agreement with recommendations and disposition.
--- NOTE | 2017-09-13 10:07 | ER Document Report ---
Doctor's Note Notes: 09/13/17 10:06 Rounds: Chart reviewed and patient interviewed. Patient is being evaluated for depression and suicidal ideation along with substance abuse of alcohol and cocaine. Patient says he feels better this morning. Does not feel suicidal at this time. Has eaten breakfast. Labs were positive for cocaine, but negative for alcohol. Other labs essentially normal. Vital signs essentially normal. Patient appears to be medically stable for transfer or discharge. Brooks Hassan MD
--- NOTE | 2017-09-13 11:30 | EKG REPORT ---
SEVERITY:- OTHERWISE NORMAL ECG - SINUS RHYTHM ST ELEV, PROBABLE NORMAL EARLY REPOL PATTERN : Confirmed by: Ami Larson MD 13-Sep-2017 11:29:59
== END 2017-09-13 10:19 | disposition home or self-care (01) ==
LOC: ER 00:08
DX: R45.851 Suicidal ideations (principal); F14.10 Cocaine abuse, uncomplicated; F12.10 Cannabis abuse, uncomplicated; F10.20 Alcohol dependence, uncomplicated; R60.0 Localized edema; Z79.899 Other long term (current) drug therapy
CPT/HCPCS: 36415; 80053; 80307; 81001; 85025; 93005; 93010; 99285